=== PATIENT | female | born 2000 | race Caucasian/White ===

== ENCOUNTER → 2020-10-02 15:18 | Outpatient (BNVA) | payer MEDICAID, SELFPAY | PROVIDERS: Family Provider Nurse Practitioner; PCP Nurse Practitioner; Visit Provider Nurse Practitioner | DX: R10.9 Unspecified abdominal pain (principal) | CPT/HCPCS: 81000 ==

== ENCOUNTER 2020-10-10 12:30 | Outpatient (CLI) | payer MEDICAID, SELFPAY ==
--- NOTE | 2020-10-10 12:57 | XR_ITS ---
WS: [id number] Exam: XR KUB [id number] Date/Time of Exam: 10/10/2020 12:57 PM Reason For Exam: GENERALIZED ABDOMINAL PAIN No bowel obstruction or free air. Visualized organ margins are unremarkable. Mild lumbar scoliosis wi th left convexity. XR/XR KUB [id number] IMPRESSION: 1. No acute abdominal process. 2. Levoscoliosis of the lumbar spine.
== END 2020-10-10 12:31 | disposition home or self-care (01) ==
LOC: RAD 12:33
PROVIDERS: PCP Nurse Practitioner Family; Visit Provider Nurse Practitioner Family
DX: R10.84 Generalized abdominal pain (principal); M41.86 Other forms of scoliosis, lumbar region
CPT/HCPCS: 74018

== ENCOUNTER 2020-10-19 07:42 | Outpatient (CLI) | payer MEDICAID, SELFPAY ==
--- NOTE | 2020-10-19 07:46 | US_ITS ---
WS: [id number] Complete ABDOMINAL ULTRASOUND HISTORY: ABDOMINAL PAIN COMPARISON: None available. Liver: 14.7 cm in length. Liver is normal size and echogenicity with no mass or intrahepatic dilatati on. Gallbladder: Normally distended with no gallstones, wall thickening or pericholecystic fluid. Gallbladder wall thickness: 0.2 cm. Pancreas: Normal size and echogenicity. CBD: 0.4 cm. Right kidney: 8.8 cm x 5.0 cm x 3.7 cm. No mass, cortical thickening or hydronephrosis. Left kidney: 9.4 cm x 4.8 cm x 3.9 cm. No mass, cortical thickening or hydronephrosis. Spleen: Normal size and echogenicity. Abdominal aorta and IVC are within normal limits. No ascites. US/US abdomen complete* [id number] IMPRESSION: Normal complete abdomen ultrasound.
== END 2020-10-19 07:43 | disposition home or self-care (01) ==
LOC: RAD 07:45
PROVIDERS: PCP Nurse Practitioner Family; Visit Provider Nurse Practitioner Family
DX: R10.9 Unspecified abdominal pain (principal)
CPT/HCPCS: 76700

== ENCOUNTER 2021-04-04 08:24 | Outpatient (CLI) | payer MEDICAID, SELFPAY ==
--- NOTE | 2021-04-04 08:30 | US_ITS ---
WS: [id number] THYROID ULTRASOUND HISTORY: THYROID ANTIBODY POSITIVE/FATIGUE/HEAT INTOLERANCE COMPARISON: None available. Right lobe: 2.7 cm x 1.9 cm x 5.3 cm (w x ap x l). Volume: 13.9 cm3. Enlarged heterogeneous hypervascular thyroid. Coarse echotexture throughout with no nodule. Left lobe: 2.1 cm x 1.8 cm x 5.4 cm (w x ap x l). Volume: 10.8 cm3. Enlarged heterogeneous, hypervascular thyroid. Coarse echotexture throughout with no nodule. Isthmus: 0.6 cm. Enlarged and hypervascular. US/US thyroid [id number] IMPRESSION: Thyromegaly with hypervascularity. Most consistent with Graves' disease.
== END 2021-04-04 08:25 | disposition home or self-care (01) ==
PROVIDERS: PCP Registered Nurse; Visit Provider Registered Nurse
DX: R76.8 Other specified abnormal immunological findings in serum (principal); R68.89 Other general symptoms and signs; R53.83 Other fatigue; E01.0 Iodine-deficiency related diffuse (endemic) goiter
CPT/HCPCS: 76536